=== PATIENT | male | born 1955 | race Caucasian/White ===

== ENCOUNTER 2019-10-26 21:56 | Emergency (ER) | payer MEDICARE ==
[~2019-10-26] VITALS: Ht 165.1 cm; Wt 74.0 kg
[2019-10-27 11:43] VITALS: BP 118/60
== END 2019-10-27 11:45 | disposition home or self-care (01) ==
LOC: ER 21:56
DX: M54.9 Dorsalgia, unspecified (principal); E11.9 Type 2 diabetes mellitus without complications; Z86.73 Personal history of transient ischemic attack (TIA), and cerebral infarction without residual deficits
CPT/HCPCS: 87635; 99285

== ENCOUNTER 2020-01-24 18:58 | Emergency (ER) | payer MEDICARE ==
[~2020-01-24] VITALS: Ht 165.1 cm; Wt 87.0 kg
[2020-01-24] MEDS ORDERED: ACETAMINOPHEN 325MG TABLET PO ONE (19:15)
[2020-01-24 23:04] LABS: CLARITY URINE CLEAR (CLEAR); COLOR URINE DARK YELLOW (YELLOW); KETONES URINE 1+ (NEGATIVE); LEUKOCYTE ESTERASE URINE 2+ (NEGATIVE); NITRITE URINE NEGATIVE (NEGATIVE); OCCULT BLOOD URINE NEGATIVE (NEGATIVE); PROTEIN URINE TRACE (NEGATIVE); SPECIFIC GRAVITY URINE 1.027 (1.005-1.030)
[2020-01-24 23:26] LABS: BASOPHILS % 0.5 % (0.0-2.0); EOSINOPHILS % 0.4 % (0.0-5.0); HEMATOCRIT. 42.9 % (42.0-52.0); HEMOGLOBIN. 14.7 g/dL (14.0-18.0); LYMPHOCYTES % 12.7 % (20.0-50.0); MEAN CORPUSCULAR VOLUME 90.2 fL (80.0-94.0); MEAN PLATELET VOLUME 6.9 fl (7.4-10.4); MONOCYTES % 8.2 % (2.0-8.0); NEUTROPHILS % 78.2 % (40.0-76.0); PLATELET 405 x1000/uL (130-400); RED BLOOD CELL COUNT 4.75 mill/uL (4.7-6.1); RED CELL DISTRIBUTION WIDTH 14.4 % (11.6-14.6)
[2020-01-24 23:29] LABS: CHLORIDE 102 mEq/L (98-107)
[2020-01-25] MEDS ORDERED: CEFTRIAXONE 1 G PREMIX 50 ML IV ONE
[2020-01-25 01:05] VITALS: BP 124/59
== END 2020-01-25 01:16 | disposition home or self-care (01) ==
LOC: ER 18:58
DX: H11.32 Conjunctival hemorrhage, left eye (principal); S42.291A Other displaced fracture of upper end of right humerus, initial encounter for closed fracture; S20.219A Contusion of unspecified front wall of thorax, initial encounter; S00.03XA Contusion of scalp, initial encounter; N39.0 Urinary tract infection, site not specified; E11.9 Type 2 diabetes mellitus without complications; Z86.73 Personal history of transient ischemic attack (TIA), and cerebral infarction without residual deficits; Y08.89XA Assault by other specified means, initial encounter; Y93.89 Activity, other specified; Y92.89 Other specified places as the place of occurrence of the external cause
CPT/HCPCS: 29125; 36415; 70450; 71045; 73060; 80048; 81003; 85025; 93005; 96365; 99285; J0696

== ENCOUNTER 2020-03-28 18:39 | Emergency (ER) | payer SELFPAY ==
[~2020-03-28] VITALS: Ht 165.1 cm; Wt 68.0 kg
[2020-03-28] MEDS ORDERED: SODIUM CHLORIDE 0.9% 1,000 ML IV ONE (19:15)
[2020-03-28] MEDS ORDERED: TETANUS, DIPHTHERIA, PERTUSSIS VAC/PF 0.5ML (>7YR OLD) IM ONE (19:30)
[2020-03-28 20:01] VITALS: BP 115/62
[2020-03-28 20:57] LABS: CLARITY URINE CLEAR (CLEAR); COLOR URINE YELLOW (YELLOW); KETONES URINE NEGATIVE (NEGATIVE); LEUKOCYTE ESTERASE URINE NEGATIVE (NEGATIVE); NITRITE URINE NEGATIVE (NEGATIVE); OCCULT BLOOD URINE NEGATIVE (NEGATIVE); PROTEIN URINE NEGATIVE (NEGATIVE); UROBILINOGEN URINE 0.2 E.U./dL (0.2-1.0)
[2020-03-28 21:34] LABS: *AMPHETAMINES SCREEN URINE NEGATIVE (NEGATIVE); CANNABINOID URINE SCREEN NEGATIVE (NEGATIVE)
[2020-03-28 21:35] LABS: *BARBITURATES SCREEN URINE NEGATIVE (NEGATIVE); *BENZODIAZEPINES SCREEN URINE NEGATIVE (NEGATIVE); *COCAINE SCREEN URINE NEGATIVE (NEGATIVE); METHADONE URINE SCREEN NEGATIVE (NEGATIVE); OPIATES URINE SCREEN NEGATIVE (NEGATIVE); PHENCYCLIDINE URINE SCREEN NEGATIVE (NEGATIVE)
== END 2020-03-28 21:00 | disposition home or self-care (01) ==
LOC: ER 18:39
DX: F10.129 Alcohol abuse with intoxication, unspecified (principal); Y90.9 Presence of alcohol in blood, level not specified; S01.111A Laceration without foreign body of right eyelid and periocular area, initial encounter; E11.9 Type 2 diabetes mellitus without complications; X58.XXXA Exposure to other specified factors, initial encounter; Y93.9 Activity, unspecified; Y92.480 Sidewalk as the place of occurrence of the external cause; Z86.73 Personal history of transient ischemic attack (TIA), and cerebral infarction without residual deficits
CPT/HCPCS: 80305; 81003; 99283; J7030

== ENCOUNTER 2021-12-25 00:55 | Inpatient (IN) | payer OTHER ==
[~2021-12-25] VITALS: Ht 152.4 cm; Wt 78.5 kg
[2021-12-25] MEDS ORDERED: SODIUM CHLORIDE 0.9% 1,000 ML IV ONE (01:30)
[2021-12-25 04:43] LABS: PROTHROMBIN TIME 10.3 sec (9.6-11.0)
[2021-12-25 04:44] LABS: CHLORIDE 103 mEq/L (98-107)
[2021-12-25 04:57] LABS: ETHANOL BLOOD 224 mg/dL
[2021-12-25 05:08] LABS: BASOPHILS % 0.8 % (0.0-2.0); EOSINOPHILS % 0.8 % (0.0-5.0); HEMATOCRIT. 45.3 % (42.0-52.0); HEMOGLOBIN. 15.2 g/dL (14.0-18.0); LYMPHOCYTES % 23.4 % (20.0-50.0); MEAN CORPUSCULAR HEMOGLOBIN 31.7 pg (28.0-32.0); MEAN CORPUSCULAR VOLUME 94.4 fL (80.0-94.0); MEAN PLATELET VOLUME 7.6 fl (7.4-10.4); PLATELET 217 x1000/uL (130-400); RED BLOOD CELL COUNT 4.79 mill/uL (4.7-6.1); RED CELL DISTRIBUTION WIDTH 14.3 % (11.6-14.6)
[2021-12-25] MEDS ORDERED: TETANUS AND DIPHTHERIA TOX/PF 0.5ML SYR (ADULT) IM ONE (06:00)
[2021-12-25] MEDS ORDERED: LORAZEPAM 2MG/ML CPJ IV ONE (06:30)
[2021-12-25] MEDS ORDERED: TETANUS, DIPHTHERIA, PERTUSSIS VAC/PF 0.5ML (>10YR OLD) IM ONE (10:00)
[2021-12-25] MEDS ORDERED: ONDANSETRON HCL 4MG/2ML INJ IV PRN (12:00)
[2021-12-25] MEDS ORDERED: MAGNESIUM/ALUMINUM HYDROXIDE/SIMETHICONE 30ML UDC PO PRN (12:00)
[2021-12-25] MEDS ORDERED: DIPHENHYDRAMINE 50MG/ML VIAL IV PRN (12:00)
[2021-12-25] MEDS ORDERED: DEXTROSE 50% WATER 50ML SYRINGE IV PRN (12:00)
[2021-12-25] MEDS ORDERED: ACETAMINOPHEN 325MG TABLET PO PRN ×2 (12:00)
[2021-12-25] MEDS ORDERED: MVI, ADULT NO.1 10 ML, FOLIC ACID 1 MG, THIAMINE HCL 100 MG in SODIUM CHLORIDE 0.9% 1,0... IV NR ×4 (13:00)
[2021-12-25] MEDS: BLOOD SUGAR DIAGNOSTIC STRIP TEST SCH ×3 (14:00→21:00)
[2021-12-25] MEDS: INSULIN LISPRO 100 UNITS/ML SUBCUT SCH ×3 (14:00→21:00)
[2021-12-25] MEDS: SODIUM CHLORIDE 0.9% INJ 3ML FLUSH IVF SCH ×2 (14:00→22:21)
[2021-12-25 16:00] VITALS: BP 112/41
[2021-12-25] MEDS: LORAZEPAM 2MG/ML CPJ IV PRN ×2 (16:06→21:40)
[2021-12-25 16:59] VITALS: BP 112/41
[2021-12-25 22:00] VITALS: BP 137/52
[2021-12-25 22:38] LABS: T4 FREE 0.8 ng/dL (0.76-1.46)
[2021-12-26 00:38] LABS: CREATINE KINASE MB FRACTION 1.6 ng/mL (0.5-3.6)
[2021-12-26 04:00] VITALS: BP 136/52
[2021-12-26] MEDS: SODIUM CHLORIDE 0.9% INJ 3ML FLUSH IVF SCH ×2 (05:34→22:00)
[2021-12-26] MEDS: BLOOD SUGAR DIAGNOSTIC STRIP TEST SCH ×4 (07:09→21:00)
[2021-12-26] MEDS: INSULIN LISPRO 100 UNITS/ML SUBCUT SCH ×4 (07:09→21:00)
[2021-12-26 08:00] VITALS: BP 147/71
[2021-12-26] MEDS: LORAZEPAM 2MG/ML CPJ IM PRN ×3 (11:48→20:30)
[2021-12-26 12:00] VITALS: BP 142/67
[2021-12-26 16:00] VITALS: BP 124/65
[2021-12-26 20:00] VITALS: BP 150/66
[2021-12-26] MEDS ORDERED: HALOPERIDOL LACTATE 5MG/ML VIAL IM PRN (22:30)
[2021-12-27 04:00] VITALS: BP 121/72
[2021-12-27] MEDS: SODIUM CHLORIDE 0.9% INJ 3ML FLUSH IVF SCH ×2 (06:00→12:14)
[2021-12-27] MEDS: INSULIN LISPRO 100 UNITS/ML SUBCUT SCH (07:09)
[2021-12-27] MEDS: BLOOD SUGAR DIAGNOSTIC STRIP TEST SCH (07:20)
[2021-12-27 08:21] VITALS: BP 110/86
[2021-12-27 12:12] VITALS: BP 120/62
[2021-12-27] MEDS: LORAZEPAM 2MG/ML CPJ IM PRN (15:32)
[2021-12-27 20:27] VITALS: BP 153/76
== END 2021-12-27 21:30 | disposition short-term general hospital (02) | DRG 308 ==
LOC: ER 00:58 → 6WST 09:44 → EDBEDREQ 09:53 → ENRESERV 12:05
PROVIDERS: ADMIT Internal Medicine; ATTEND Internal Medicine
DX: I44.7 Left bundle-branch block, unspecified (principal); G92.8 Other toxic encephalopathy; Z20.822 Contact with and (suspected) exposure to COVID-19; I10 Essential (primary) hypertension; J44.9 Chronic obstructive pulmonary disease, unspecified; E11.9 Type 2 diabetes mellitus without complications; F10.229 Alcohol dependence with intoxication, unspecified; Y90.7 Blood alcohol level of 200-239 mg/100 ml; Z86.73 Personal history of transient ischemic attack (TIA), and cerebral infarction without residual deficits
CPT/HCPCS: 36415; 80053; 80061; 80320; 82550; 82553; 82962; 83036; 83880; 84439; 84443; 84484; 85025; 85379; 87426; 90715; 93005; 99291; C1893; C9803; J1630; J2060; J3411; J3490; J7030; G0480